=== PATIENT | female | born 1965 | race American Indian/Alaskan Native ===

== ENCOUNTER 2016-12-29 21:22 | Emergency (ER) | payer SELFPAY ==
[2016-12-29 22:38] LABS: Basophils % (Auto) 0.9 % (0.0-1.8); Eosinophils % (Auto) 2.2 % (0.0-4.3); Hemoglobin 13.8 gm/dl (10.1-14.3); Mean Corpuscular HGB Conc 34 % (30-34); Mean Corpuscular Hemoglobin 34 pg (28-32); Mean Corpuscular Volume 101 fl (79-97); Platelet Count 249 K/mm3 (140-440); Red Blood Count 4.07 M/mm3 (3.65-5.03); Red Cell Distribution Width 14.1 % (13.2-15.2); White Blood Count 8.7 K/mm3 (4.5-11.0)
[2016-12-29 22:50] LABS: Anion Gap 18 mmol/L; Blood Urea Nitrogen 9 mg/dL (7-17); Calcium 9.5 mg/dL (8.4-10.2); Carbon Dioxide 30 mmol/L (22-30); Chloride 96.3 mmol/L (98-107); Glucose 108 mg/dL (65-100); Potassium 4.8 mmol/L (3.6-5.0); Sodium 139 mmol/L (137-145)
[2016-12-30 00:26] VITALS: BP 130/94
--- NOTE | 2016-12-31 01:05 | ED Elopement Review ---
ED Pt Elopement review - Results review Lab results: Laboratory Tests 12/29/16 12/29/16 12/30/16 22:16 22:16 00:43 WBC 8.7 RBC 4.07 Hgb 13.8 Hct 41.0 MCV 101 H MCH 34 H MCHC 34 RDW 14.1 Plt Count 249 Lymph % (Auto) 21.5 [place] % (Auto) 6.2 Eos % (Auto) 2.2 Baso % (Auto) 0.9 Lymph # 1.9 [place] # 0.5 Eos # 0.2 Baso # 0.1 Seg Neutrophils % 69.2 Seg Neutrophils # 6.0 Sodium 139 Potassium 4.8 Chloride 96.3 L Carbon Dioxide 30 Anion Gap 18 BUN 9 Creatinine 0.6 L Estimated GFR > 60 BUN/Creatinine Ratio 15.00 Glucose 108 H Calcium 9.5 Troponin T < 0.010 < 0.010 - Call Back decision Pt Call Back Decision: Call pt to return to ED [facility] (chest pain should be further evaluated. Consider imaging with history of trauma)
== END 2016-12-30 05:13 | disposition left against medical advice (07) ==
LOC: ED 21:22
DX: R07.9 Chest pain, unspecified (principal); Z53.21 Procedure and treatment not carried out due to patient leaving prior to being seen by health care provider
CPT/HCPCS: 36415; 80048; 84484; 85025; 93005; 93010